=== PATIENT | female | born 1975 | race Hispanic/Latino ===

== ENCOUNTER 2022-05-22 18:16 | Emergency (ER) | payer BC ==
[~2022-05-22] VITALS: Ht 165.1 cm; Wt 79.4 kg
[2022-05-22 19:09] LABS: BASOPHILS % (AUTO) 0.4 % (0.0-5.0); EOSINOPHILS % (AUTO) 3.4 % (0.0-8.0); HEMATOCRIT 33.9 % (36-48); LYMPHOCYTES % (AUTO) 31.4 % (21.0-51.0); MEAN CORPUSCULAR HEMOGLOBIN 28.9 pg (27.0-33.0); MEAN CORPUSCULAR VOLUME 87.6 fL (79-99); MONOCYTES % (AUTO) 9.5 % (3.0-13.0); PLATELET COUNT (AUTO) 249 K/uL (130-400); RED BLOOD CELL COUNT(AUTO) 3.87 MIL/uL (4.00-5.50); RED CELL DISTRIBUTION WIDTH 13.8 % (11.0-15.5); WHITE BLOOD COUNT (AUTO) 6.7 K/uL (4.8-10.8)
[2022-05-22 19:13] LABS: CREATININE 0.8 mg/dL (0.5-1.5); POTASSIUM 4.4 mmol/L (3.5-5.1)
[2022-05-22 19:18] LABS: ALBUMIN 3.7 g/dL (3.5-5.0); TOTAL PROTEIN, SERUM 7.6 g/dL (6.0-8.3)
[2022-05-22] MEDS ORDERED: IPRATROPIUM/ALBUTEROL SULFATE 3 ML SOLUTION IH ONE (20:00)
[2022-05-22] MEDS ORDERED: ALBUHFA IH (20:50)
[2022-05-22] MEDS ORDERED: BENZ-39 PO (20:50)
[2022-05-22 20:57] VITALS: BP 115/78
== END 2022-05-22 21:27 | disposition home or self-care (01) ==
LOC: EDH 18:16
DX: U07.1 COVID-19 (principal); Z88.0 Allergy status to penicillin
CPT/HCPCS: 99284; 71045; 87635; 84484; 80053; 85025; 87804 ×2; 36415; 93005; 94640; C9803

== ENCOUNTER 2023-01-11 14:46 | Emergency (ER) | payer BC ==
[~2023-01-11] VITALS: Ht 165.1 cm; Wt 80.3 kg
[~2023-01-11 14:46] MED LIST: ALBUHFA IH; BENZ-39 PO
[2023-01-11 15:29] VITALS: BP 119/73
[2023-01-11] MEDS ORDERED: HYDROMORPHONE 1 MG INJ IVP ONE (15:30)
[2023-01-11 16:07] LABS: BASOPHILS % (AUTO) 0.8 % (0.0-5.0); EOSINOPHILS % (AUTO) 3.1 % (0.0-8.0); HEMATOCRIT 33.9 % (36-48); LYMPHOCYTES % (AUTO) 41.9 % (21.0-51.0); MEAN CORPUSCULAR HEMOGLOBIN 26.8 pg (27.0-33.0); MEAN CORPUSCULAR HGB CONC 33.3 g/dL (32.0-36.0); MEAN CORPUSCULAR VOLUME 80.3 fL (79-99); MONOCYTES % (AUTO) 18.8 % (3.0-13.0); NEUTROPHILS % (AUTO) 33.6 % (40.0-77.0); PLATELET COUNT (AUTO) 214 K/uL (130-400); RED BLOOD CELL COUNT(AUTO) 4.22 MIL/uL (4.00-5.50); RED CELL DISTRIBUTION WIDTH 15.9 % (11.0-15.5); WHITE BLOOD COUNT (AUTO) 3.9 K/uL (4.8-10.8)
[2023-01-11 16:22] LABS: CREATININE 0.7 mg/dL (0.5-1.5)
[2023-01-11] MEDS ORDERED: POTASSIUM BICARB/CIT AC 25 MEQ TABLET.EFF PO ONE (16:30)
[2023-01-11 16:32] LABS: ALBUMIN 3.6 g/dL (3.5-5.0); TOTAL PROTEIN, SERUM 7.2 g/dL (6.0-8.3)
[2023-01-11 17:51] LABS: APPEARANCE,URINE CLOUDY (CLEAR); BILIRUBIN,URINE NEGATIVE (NEGATIVE); COLOR,URINE YELLOW (YELLOW); GLUCOSE, URINE (UA) NEGATIVE (NEGATIVE); KETONES,URINE 5 mg/dL (NEGATIVE); LEUKOCYTE ESTERASE ,URINE 250 Leu/uL (NEGATIVE); NITRATE,URINE NEGATIVE (NEGATIVE); OCCULT BLOOD,URINE SMALL (NEGATIVE); PH,URINE 5.5 (5.0-8.0); PROTEIN,URINE 30 mg/dL (NEGATIVE); UROBILINOGEN,URINE 0.2 mg/dL (0.2-1.0)
[2023-01-11 17:59] LABS: BACTERIA,URINE RARE /HPF (None Seen); MUCUS,URINE MOD LPF (None Seen); SQUAMOUS EPITHELIAL CELL,UR MOD /HPF (0-2)
[2023-01-11] MEDS ORDERED: SULF1TAB42 PO (18:03)
== END 2023-01-11 18:30 | disposition home or self-care (01) ==
LOC: EDH 14:46
DX: N39.0 Urinary tract infection, site not specified (principal); C34.92 Malignant neoplasm of unspecified part of left bronchus or lung; M79.602 Pain in left arm
CPT/HCPCS: 99284; 96374; 93971; 71045; 82550; 84484; 80053; 85025; 85378; 87088; 81001; 36415; 93005; J1170